=== PATIENT | female | born 1945 ===

== ENCOUNTER 2024-06-14 11:58 | Outpatient (CLI) | payer MEDICARE | END 2024-06-14 11:59 | disposition home or self-care (01) | LOC: CT 11:58 | PROVIDERS: ATTEND Orthopaedic Surgery | DX: Z01.818 Encounter for other preprocedural examination (principal); M17.11 Unilateral primary osteoarthritis, right knee; K57.30 Diverticulosis of large intestine without perforation or abscess without bleeding; M62.89 Other specified disorders of muscle; M23.41 Loose body in knee, right knee ==